=== PATIENT | male | born 1995 | race Caucasian/White ===

== ENCOUNTER 2020-09-13 01:42 | Emergency (ER) ==
--- NOTE | 2020-09-13 19:19 | EKG REPORT ---
SEVERITY:- NORMAL ECG - SINUS RHYTHM : Confirmed by: Kevin Reyes MD 13-Sep-2020 19:17:53
== END 2020-09-13 04:05 | disposition left against medical advice (07) ==
LOC: ER 01:42
DX: Z53.21 Procedure and treatment not carried out due to patient leaving prior to being seen by health care provider (principal); R25.1 Tremor, unspecified
CPT/HCPCS: 93005; 93010

== ENCOUNTER 2020-10-16 22:00 | Emergency (ER) | payer OTHER ==
[2020-10-16 22:53] LABS: ABSOLUTE EOSINOPHILS # (AUTO) 0.5 10^3/uL (0.0-0.6); ABSOLUTE LYMPHOCYTES (AUTO) 2.7 10^3/uL (0.5-4.7); ABSOLUTE MONOCYTES (AUTO) 0.5 10^3/uL (0.1-1.4); ABSOLUTE NEUT (AUTO) 2.6 10^3/uL (1.7-8.2); BASOPHILS % (AUTO) 0.6 % (0-2); EOSINOPHILS % (AUTO) 7.9 % (0-6); HEMATOCRIT 37.8 % (37.9-51.0); MEAN CORPUSCULAR HEMOGLOBIN 30.9 pg (27.0-33.4); MEAN CORPUSCULAR HGB CONC 34.6 g/dL (32.0-36.0); MEAN CORPUSCULAR VOLUME 89 fl (80-97); MONOCYTES % (AUTO) 7.4 % (3-13); PLATELET COUNT 225 10^3/uL (150-450); RED BLOOD COUNT 4.23 10^6/uL (4.35-5.55); RED CELL DISTRIBUTION WIDTH 13.2 % (11.5-14.0); SEGMENTED NEUTROPHILS % (AUTO) 41.1 % (42-78); TOTAL CELLS COUNTED % (AUTO) 100 %; WHITE BLOOD COUNT 6.4 10^3/uL (4.0-10.5)
[2020-10-16 23:00] LABS: ALBUMIN 4.4 g/dL (3.5-5.0); ALCOHOL 282 mg/dL (NONE DETECTED); ALKALINE PHOSPHATASE 48 U/L (38-126); ANION GAP 10 (5-19); ASPARTATE AMINO TRANSFERASE 31 U/L (17-59); BILIRUBIN,TOTAL 0.4 mg/dL (0.2-1.3); BLOOD UREA NITROGEN 13 mg/dL (7-20); CALCIUM 9.1 mg/dL (8.4-10.2); CARBON DIOXIDE 30 mmol/L (22-30); CHLORIDE 105 mmol/L (98-107); GLUCOSE 89 mg/dL (75-110); TOTAL PROTEIN 6.9 g/dL (6.3-8.2)
[2020-10-16 23:01] LABS: APPEARANCE,URINE CLEAR; BILIRUBIN,URINE NEGATIVE (NEGATIVE); COLOR,URINE COLORLESS; GLUCOSE, URINE NEGATIVE (NEGATIVE); KETONES,URINE NEGATIVE (NEGATIVE); LEUKOCYTE ESTERASE,URINE NEGATIVE (NEGATIVE); NITRITE,URINE NEGATIVE (NEGATIVE); PROTEIN,URINE NEGATIVE (NEGATIVE); URINE SPECIFIC GRAVITY 1.003; UROBILINOGEN,URINE NEGATIVE mg/dL (<2.0)
[2020-10-16 23:02] LABS: ACETAMINOPHEN < 10 ug/mL (10-30); SALICYLATE < 1.0 mg/dL (2.0-20.0)
[2020-10-16 23:09] LABS: URINE AMPHETAMINES SCREEN NEGATIVE; URINE BARBITURATES SCREEN NEGATIVE; URINE BENZODIAZEPINES SCREEN NEGATIVE; URINE COCAINE SCREEN NEGATIVE; URINE MARIJUANA (THC) SCREEN NEGATIVE; URINE METHADONE SCREEN NEGATIVE; URINE PHENCYCLIDINE SCREEN NEGATIVE
[2020-10-16] MEDS ORDERED: LORAZEPAM INJ 2 MG/1 ML VIAL IV ONE (23:37)
--- NOTE | 2020-10-16 23:49 | ER Document Report ---
ED General - HPI Associated symptoms: Other - See HPI Exacerbated by: Other - See HPI Relieved by: Other - See HPI <JOSEFINA PAYNE IV - Last Filed: 10/17/20 06:31> <SALAZARESTEFANÍA - Last Filed: 10/17/20 13:58> - General Chief Complaint: Overdose Stated Complaint: ETOH,OVERDOSE Time Seen by Provider: 10/16/20 23:10 - HPI Context: This is a 25-year-old male who presents to the emergency department for evaluation after drinking a unknown amount of alcohol as well as taking several of his lamotrigine pills along some gabapentin pills that were not prescribed to him. The exact time of ingestion is unknown. Patient denies suicidal ideation, saying that he just wanted to feel good. Patient is complaining of problems with insomnia and with anger issues but denies suicidal ideation at this time. Poison control was contacted upon patient's arrival to the ED and a minimum 8-hour observation period was recommended and use of benzos for agitation was recommended in light of the lamotrigine. Patient states he suffers withdrawal symptoms from alcohol. Patient denies having pain at this point. Patient does states he has trouble sleeping and has not slept in several days. Patient denies homicidal ideation. Patient states there are no alleviating factors for his symptoms. Patient states his father about 5 years ago around this time a year and it seems to exacerbate his problems with drinking and insomnia. Patient denies history of COVID-19 infection, known exposure to persons positive for COVID-19 infection or known exposure to persons under investigation for COVID- 19. (JOSEFINA PAYNE IV) - Related Data Allergies/Adverse Reactions: No Known Allergies Allergy (Unverified 10/17/20 04:15) Past Medical History - General Information source: Patient, Emergency Med Personnel - Social History Smoking Status: Former Smoker Frequency of alcohol use: Heavy Drug Abuse: None Family History: Reviewed & Not Pertinent Patient has homicidal ideation: No - Medical History Medical History: Negative Psychiatric Medical History: Reports: Hx Bipolar Disorder <JOSEFINA PAYNE IV - Last Filed: 10/17/20 06:31> Review of Systems <JOSEFINA PAYNE IV - Last Filed: 10/17/20 06:31> - Review of Systems Notes: Review of systems as below unless otherwise stated in HPI. CONSTITUTIONAL [No] fever, [No] chills. EYES [No] eye pain. ENT [No] URI symptoms, [No] sore throat, [No] ear pain. CARDIOVASCULAR [No] chest pain, [No] palpitations, [No] edema. RESPIRATORY [No] Cough, [No] SOB, [No] wheezing. GASTROINTESTINAL [No] abdominal pain, [No] nausea, [No] Diarrhea, [No] Vomiting, [No] constipation, [No] melena, [No] rectal bleeding. GENITOURINARY [No] dysuria, [No] urinary frequency, [No] hematuria, [No] urinary urgency MUSCULOSKELETAL [No] Back pain. SKIN [No] Rash. NEUROLOGIC [No] Headache, [No] recent seizures, [No] paralysis,[No] parathesias. ENDOCRINE [No] polyuria. HEMO/LYMPATIC [No] easy brusing PSYCHIATRIC [No] depression. Positive insomnia, positive anger issues, positive for alcohol abuse (JOSEFINA PAYNE IV) Physical Exam <JOSEFINA PAYNE IV - Last Filed: 10/17/20 06:31> - Vital signs Vitals: Temp 97.1 F 10/16/20 22:06 - Notes Notes: CONSTITUTIONAL [Vital signs reviewed, Patient appears intoxicated, has slurred speech, appears to be in no acute respiratory distress and has a nontoxic appearance] HEAD [Atraumatic, Normocephalic.] EYES [Eyes are normal to inspection, No discharge from eyes, Extraocular muscles intact, Sclera are normal, Conjunctiva are normal.] ENT [External ears normal to inspection, Nose examination normal, Mouth normal to inspection.] NECK [Normal ROM, No jugular venous distention, No meningeal signs, ] RESPIRATORY CHEST [Chest is nontender, Breath sounds normal, No respiratory distress.] CARDIOVASCULAR [Tachycardia, No murmurs, Normal S1 S2, No rub, No gallop.] ABDOMEN [Abdomen is nontender, No pulsatile masses, No other masses, Bowel sounds normal, No distension, No peritoneal signs, No hernias.] BACK [There is no CVA Tenderness, There is no tenderness to palpation, Normal inspection.] UPPER EXTREMITY [Inspection normal, No cyanosis, No clubbing, No edema, LOWER EXTREMITY [Inspection normal, No cyanosis, No clubbing, No edema, No calf tenderness, NEURO [No focal motor deficits, No focal sensory deficits, Speech slurred] SKIN [Skin is warm, Skin is dry, Skin is normal color.] PSYCHIATRIC [Patient appears intoxicated and smells of byproducts of EtOH metabolism] (JOSEFINA PAYNE IV) Course - Laboratory Result Diagrams: 10/16/20 22:12 10/16/20 22:12 <JOSEFINA PAYNE IV - Last Filed: 10/17/20 06:31> - Laboratory Result Diagrams: 10/16/20 22:12 10/16/20 22:12 <ESTEFANÍA SALAZAR - Last Filed: 10/17/20 13:58> - Re-evaluation Re-evalutation: 10/17/20 06:31 pt is medically cleared (JOSEFINA PAYNE IV) - Vital Signs Vital signs: Temp Pulse Resp BP Pulse Ox 98.5 F 17 120/63 99 10/17/20 09:20 10/17/20 06:01 10/17/20 06:01 10/17/20 06:01 - Laboratory Laboratory results interpreted by me: 10/16/20 10/16/20 22:12 22:12 RBC 4.23 L Hgb 13.0 L Hct 37.8 L Eos % (Auto) 7.9 H Seg Neutrophils % 41.1 L Salicylates < 1.0 L Acetaminophen < 10 L - EKG Interpretation by Me Additional EKG results interpreted by me: 10/16/20 23:51 EKG obtained on 10/16/2020 at 2318 hours was interpreted by this MD. Findings: Normal sinus rhythm, rate 98, normal axis, MA interval appears within normal limits, P waves proceed QRS complexes, QRS complexes appear narrow, QTC is four nine, there are no obvious patterns of ST segment elevation, depression or reciprocal changes seen to suggest acute myocardial ischemia or infarction. There is no prior EKG readily available for comparison. Impression: Normal sinus rhythm with nonspecific ST segments. (JOSEFINA PAYNE IV) Discharge <JOSEFINA PAYNE IV - Last Filed: 10/17/20 06:31> <ESTEFANÍA SALAZAR - Last Filed: 10/17/20 13:58> - Discharge Clinical Impression: Substance abuse Overdose Qualifiers: Encounter type: initial encounter Injury intent: accidental or unintentional Qualified Code(s): T50.901A - Poisoning by unspecified drugs, medicaments and biological substances, accidental (unintentional), initial encounter Condition: Stable Disposition: HOME, SELF-CARE Additional Instructions: You have been evaluated both medical and behavioral teams have been deemed appropriate for discharge. You are highly encouraged to follow-up with outpatient substance abuse and mental health services. [facility] can assist with both substance abuse and mental health, you can do a walk-in Monday morning to start services. You have also been provided a local resource list of area providers which includes detox facilities. [facility] can assist with detox if you choose. A referral for the community paramedics will be submitted to assist you in the community while securing outpatient services. DEPRESSION: Your evaluation reveals that you have mental depression. While symptoms may be vague, they often include disturbance of sleep, fatigue, loss of appetite, and general loss of interest in life. While depression may be a side effect of drugs, or a reaction to a major change in your life, many cases have no known cause. If depression is acute, and related to a major loss in your life, you can expect it to clear completely with time. If you have been depressed a long time, are prone to repeated bouts of depression or low mood, or have been thinking of suicide, get help. Depression can be treated with anti-depressant medication and counselling. Long-term depression will often take a few weeks to clear, even with appropriate medication. Follow-up care is important. ACUTE ALCOHOL INTOXICATION and ALCOHOL ABUSE: Your evaluation revealed very high levels of alcohol. You can from drinking a large amount of alcohol rapidly! Further, there's the risk of falls, traffic accidents, and fights. A high portion (about 50 percent) of the serious injuries seen in hospital emergency rooms are caused by alcohol. Alcohol overdosage is usually due to an underlying emotional or psychiatric problem. You may benefit from counselling. If "binge" drinking is an ongoing problem for you, or if you drink ANY AMOUNT of alcohol EVERY day, you most likely have a tendency to alcoholism. You should avoid alcohol totally. We can refer you for treatment. Persons with alcohol problems are often also prone to other addictions -- you should discuss any use of medications or drugs with the doctor. You should be watched at home for the next several hours by someone who has not been drinking. Get extra fluids for the next 24 hours. Call the doctor if there is repeated vomiting, increasing headache, decreasing level of alertness, or any other worsening. CHRONIC ALCOHOLISM and ALCOHOL ABUSE: Your evaluation reveals evidence of chronic alcoholism, an addiction to alcohol. The tendency to alcoholism may be inherited. Chronic use of alcohol weakens muscles, causes fatty deposits in the liver, damages the stomach, makes you more prone to infections, and can cause defects in unborn children. In the long run, brain atrophy and cirrhosis of the liver result. You are also at greater risk for certain types of cancer, such as cancer of the mouth, throat, stomach, and liver. Counselling services are available to help you. In-hospital treatment programs often help. Support groups such as Alcoholics Anonymous can be very useful in beating this addiction. Your physician can make a referral for you. As alcoholics often are prone to other addictions, you should discuss your use of any other medications with the doctor. ALCOHOL WITHDRAWAL: Your symptoms are caused by alcohol withdrawal. After a period of frequent drinking, the brain and body are changed by the alcohol. When you quit or reduce your drinking, the nervous system becomes unstable. Withdrawal symptoms can start a few hours after your last drink, but sometimes don't begin until a couple of days later. Symptoms can include shakiness, sweating, insomnia, nausea, vomiting, fearfulness, hallucinations, and seizures. In addition to the acute effects of alcohol withdrawal, we often have to deal with the medical effects of alcoholism. These problems often include dehydration, stomach irritation, intestinal bleeding, low blood sugar, liver disease, and pancreas inflammation. Treatment for alcohol withdrawal includes mild sedatives, vitamins, and fluids. You need to be with someone who can help if symptoms become severe. Many patients can withdraw at home. Admission to the hospital or a detox facility may be necessary if withdrawal symptoms are severe and uncontrollable. Abstaining from alcohol is the only effective long-term treatment. If you start drinking again, you will not be able to control yourself after the first drink. Treatment programs are available. In addition, many alcoholics benefit from Alcoholics Anonymous or other support groups available through your counselor or yazdanism room service waiter. [facility] and [facility] are support groups for friends and family members of an alcoholic. Go to the emergency room if you develop persistent vomiting, severe a bdominal pain, fever, shortness of breath, hallucinations, uncontrollable tremors, or seizures. FOLLOW-UP CARE: If you have been referred to a physician for follow-up care, call the physicians office for an appointment as you were instructed or within the next two days. If you experience worsening or a significant change in your symptoms, notify the physician immediately or return to the Emergency Department at any time for re-evaluation. Referrals: [facility] [Outside] - Follow up in 3-5 days [facility] [Outside] - Follow up as needed
[2020-10-17] MEDS ORDERED: LORAZEPAM INJ 2 MG/1 ML VIAL IV ONE ×2 (02:16→06:29)
--- NOTE | 2020-10-17 11:50 | EKG REPORT ---
SEVERITY:- NORMAL ECG - SINUS RHYTHM : Confirmed by: Bry Morgan MD 17-Oct-2020 11:49:57
--- NOTE | 2020-10-17 13:55 | PSYCHOLOGICAL NOTE ---
Psych Note - Psych Note Date seen by psych provider: 10/17/20 Time seen by psych provider: 11:20 Psych Note: Reason for Consult:Overdose Consent Permissions: Patient's girlfriend at bedside for developing plan of care per patient's request Patient arrived to [facility] ED via EMS for concerns of overdose on Lamictal. Patient reportedly took Lamictal and gabapentin while drinking alcohol in an attempt to get high. Patient confirms difficulties during the holidays due to grief i.e. patient's sister and father have both within the last 5 years. Patient adamantly denies he was attempting to harm himself stating he was just trying to get high so he could "escape" for a little bit. Patient discloses he is unsure why he even thought that Lamictal would get him high but contributes his drinking to not being able to think clearly on what he was taking. Patient's girlfriend confirms patient's report that last night was the patient attempting to escape reality not attempting to kill himself. She confirms she will ensure the patient does not have access to medications and weapons especially while under the influence due to his impulsiveness. Both patient and patient's girlfriend confirm they will discuss possible detox facilities and follow-up treatment. Patient reports he would like to start up with AA again as this is helped him in the past. Clinician will provide the patient with online resources due to Covid shutting down most in person AA meetings. Patient is alert and orientated to person, place, time and circumstance. Mood is euthymic with congruent affect as evidenced by smiling laughing engaging with clinician. Patient adamantly denies suicidal ideation however admits to be attempting to use Lamictal and gabapentin to get high. Patient denies homicidal ideation. Delusions are absent and behaviors congruent with an intact reality based presentation i.e. organized linear thought process. Eye contact is well maintained. Patient has notable speech impediment that he reports is currently at baseline. Intellectual abilities appear to be within the average range. Attention and concentration are good. Insight, judgment, impulse control are poor due to substance abuse. Clinical Presentation: Substance abuse Depression due to ongoing grief IVC Criteria per [place] GS 122C Dangerous to others Within the relevant past the individual No has inflicted or attempted to inflict or threatened to inflict serious bodily harm on another AND No that there is a reasonable probability that this conduct will be repeated as there is an absence of supervision or structure to prevent. OR No has acted in such a way as to create a substantial risk of serious bodily harm to another AND No that there is a reasonable probability that this conduct will be repeated as there is an absence of supervision or structure to prevent. OR No has engaged in extreme destruction of property AND NO that there is a reasonable probability that this conduct will be repeated as there is an absence of supervision or structure to prevent. Previous episodes of dangerousness to others, when applicable, may be considered when determining reasonable probability of future dangerous conduct. Clear, cogent, and convincing evidence that an individual has committed a homicide in the relevant past is prima facie evidence of dangerousness to others. Dangerous to self Within the relevant past the individual has done any of the following: acted in such a way as to show ALL of the following: No The individual would be unable without care, supervision, and the continued assistance of others not otherwise available, to exercise self- control, judgment, and discretion in the conduct of the individual's daily responsibilities and social relations or to satisfy the individual's need for nourishment, personal or medical care, mcfp, or self-protection and safety. AND No There is a reasonable probability of the individual suffering serious physical debilitation within the near future unless adequate treatment is given. A showing of behavior that is grossly irrational, of actions that the individual is unable to control, of behavior that is grossly inappropriate to the situation, or of other evidence of severely impaired insight and judgment shall create a prima facie inference that the individual is unable to care for himself or herself. OR No has attempted suicide or threatened suicide AND No that there is a reasonable probability of suicide unless adequate treatment is given as there is an absence of supervision or structure to prevent suicide of patient who has made an attempt, serious gesture or threat. Patient arrived after overdose on lamictal while drinking. Patient denies this was a suicide attempt, he was attempting to get high. Patient does admit to depression during the holidays which her reports why he was trying to get high, to escape. Patient is an alcoholic and reports the alcohol was making him not think clearly, he is unsure why he even thought he could get high on lamictal. OR No has mutilated himself or herself or attempted to mutilate himself or herself AND No that there is a reasonable probability of serious self-mutilation unless adequate treatment is given as there is an absence of supervision or structure to prevent. NOTE: Previous episodes of dangerousness to self, when applicable, may be considered when determining reasonable probability of physical debilitation, suicide, or self-mutilation. Impression\\plan: Patient is recommended for rescind of IVC and is cleared from acute psychiatric services; paperwork is signed and placed in patient's chart. Patient denies any thoughts of wanting to harm himself or others. Patient reports he was attempting to get high and in order to escape his depression last night. Patient's girlfriend is at bedside and confirms patient's reports. Neither patient nor girlfriend have concerns with the patient returning home. Patient's girlfriend does confirm she will ensure the patient does not have access to medications or weapons especially due to his longstanding alcohol abuse and impulse control issues while intoxicated. Patient is recommended to follow-up with both substance abuse and mental health services to address ongoing alcohol abuse and depression surrounding grief. Patient is recommended to follow-up with [facility] and can walk-in Monday. Patient is also provided local resource list of area providers including detox facilities and mobile crisis contact information. Patient is encouraged to contact [facility] for assistance with voluntary detox. A referral for community paramedics will also be submitted for continued follow-up in the community while establishing services. Dr. Perera was consulted to care management of this patient; attending physicians in agreement with recommendations and disposition.
--- NOTE | 2020-10-17 14:39 | ER Document Report ---
Doctor's Note Notes: 10/17/20 14:38 Patient's vital signs and previous labs, diagnostic images reviewed. Reviewed mental health notes, nurse's notes and previous providers notes. VSS. Pt is in no distress at this time. Denies any SI or HI. General: A&Ox3. Answers questions appropriately. Heart: RRR Lungs: CTAB Psych: Flat affect A/P: Continue monitoring and rec's per MH. Normal diet will likely discharge home with outpatient therapy
[2020-10-17 15:50] VITALS: BP 133/81
== END 2020-10-17 15:36 | disposition home or self-care (01) ==
LOC: ER 22:00
DX: T42.6X1A Poisoning by other antiepileptic and sedative-hypnotic drugs, accidental (unintentional), initial encounter (principal); F10.10 Alcohol abuse, uncomplicated; G47.00 Insomnia, unspecified; F43.21 Adjustment disorder with depressed mood; R45.4 Irritability and anger; Z63.4 Disappearance and death of family member; Z87.891 Personal history of nicotine dependence
CPT/HCPCS: 93005; 96376; 99284; 96374; 36415; 80307 ×4; 85025; 80053; 81001; 93010; J2060 ×2

== ENCOUNTER 2020-12-07 17:00 | Emergency (ER) | payer OTHER ==
--- NOTE | 2020-12-07 17:34 | ER Document Report ---
ED General - General Chief Complaint: Alcohol Withdrawl Stated Complaint: ALCOHOL WITHDRAWAL Time Seen by Provider: 12/07/20 17:31 - HPI Notes: 25-year-old male presents with concerns for alcohol withdrawal. Patient states that he typically drinks 1 bottle of vodka daily. He has been through many cycles of trying to quit alcohol use and alcohol withdrawal. Patient states that last night he was experiencing withdrawal symptoms. He reports that he was hallucinating and feeling shaky. He states that he heard a baby crying, birds in the house, a door slamming. He also states that he thought he saw ants crawling around him. He has never had a seizure from alcohol withdrawal. He states that drinking alcohol helps with his symptoms. Will wake up in the mornings and feel flushed and anxious, does consume a morning drink. he did consume about 4 beers today which alleviated his previous symptoms. He currently complains of nausea and wanting to get better. He denies other drugs of abuse. He has not contacted any treatment facilities but is open to the possibility of going today. Also states that he will frequently make himself throw up while he is intoxicated. - Related Data Allergies/Adverse Reactions: No Known Allergies Allergy (Unverified 10/17/20 04:15) Past Medical History - General Information source: Patient - Social History Smoking Status: Current Every Day Smoker Frequency of alcohol use: Heavy Drug Abuse: None Family History: Reviewed & Not Pertinent Psychiatric Medical History: Reports: Hx Bipolar Disorder Review of Systems - Review of Systems Constitutional: No symptoms reported EENT: No symptoms reported Cardiovascular: denies: Chest pain Respiratory: denies: Short of breath Gastrointestinal: denies: Abdominal pain Male Genitourinary: No symptoms reported Musculoskeletal: No symptoms reported Skin: No symptoms reported Hematologic/Lymphatic: No symptoms reported Neurological/Psychological: denies: Headaches Physical Exam - Vital signs Vitals: Temp Pulse Resp BP Pulse Ox 98.1 F 91 16 125/75 97 12/07/20 17:24 12/07/20 17:24 12/07/20 17:24 12/07/20 17:24 12/07/20 17:24 - General General appearance: Appears well, Alert In distress: None - HEENT Head: Normocephalic, Atraumatic Extraocular movements intact: Yes Pupils: PERRL Notes: No facial flushing - Respiratory Breath sounds: Normal - Cardiovascular Rhythm: Regular Heart sounds: Normal auscultation - Abdominal Distension: No distension Tenderness: Nontender - Extremities General upper extremity: Normal ROM General lower extremity: Normal ROM - Neurological Neuro grossly intact: Yes Cognition: Normal Orientation: AAOx4 - Psychological Associated symptoms: Other - Mood and affect congruent to situation - Skin Skin Temperature: Warm Notes: No diaphoresis Course - Re-evaluation Re-evalutation: 25-year-old male history of alcohol abuse/dependence here with withdrawal symptoms last night, abated this morning with alcohol consumption. On exam he is well-appearing, no tachycardia, no hypertension, no facial flushing or diaphoresis. Lungs are clear, abdomen is soft. Does not appear to be actively in withdrawal. Given his alcohol consumption today I would have a low suspicion for this additionally. I discussed with patient the end goal today, he is agreeable to go to [place] to seek treatment for alcohol abuse. Will order clearance labs and Zofran. 12/07/20 18:55 No leukocytosis or left shift. No acute anemia. Electrolytes okay. No elevation of LFTs. No UTI. EtOH 220. I went into reassess patient. He reports of being shaky, however there are no visible tremors. Again no facial flushing or diaphoresis. I do not suspect he is in acute alcohol withdrawal right now, additionally his ethanol level is protective, have ordered a small dose of oral Valium as favoring more so anxiety. I gave him of the resource list for detox facilities. His girlfriend is at bedside and they do intend to go to [place] after discharge. Return precautions given, stable at time of discharge. - Vital Signs Vital signs: Temp Pulse Resp BP Pulse Ox 98.1 F 91 16 125/75 97 12/07/20 17:24 12/07/20 17:24 12/07/20 17:24 12/07/20 17:24 12/07/20 17:24 - Laboratory Results Result Diagrams: 12/07/20 17:52 12/07/20 17:52 Laboratory Results Interpreted: 12/07/20 17:52 Sodium 145.3 H Chloride 108 H Critical Laboratory Results Reviewed: No Critical Results - Radiology Results Critical Radiology Results Reviewed: No Critical Results Discharge - Discharge Clinical Impression: Alcohol abuse with intoxication Disposition: HOME, SELF-CARE Additional Instructions: Please go to [place] treatment center to receive treatment for alcohol abuse. If unable to get the [facility], you may look into other rehab facilities in the area, see resource list provided. Return to the emergency department for any concerning worsening symptoms.
[2020-12-07] MEDS ORDERED: ONDANSETRON 4 MG TAB.RAPDIS PO ONE (17:42)
[2020-12-07 18:24] LABS: ABSOLUTE EOSINOPHILS # (AUTO) 0.3 10^3/uL (0.0-0.6); ABSOLUTE LYMPHOCYTES (AUTO) 2.2 10^3/uL (0.5-4.7); ABSOLUTE MONOCYTES (AUTO) 0.6 10^3/uL (0.1-1.4); ABSOLUTE NEUT (AUTO) 3.6 10^3/uL (1.7-8.2); BASOPHILS % (AUTO) 0.6 % (0-2); EOSINOPHILS % (AUTO) 5.1 % (0-6); HEMATOCRIT 40.3 % (37.9-51.0); LYMPHOCYTES % (AUTO) 32.7 % (13-45); MEAN CORPUSCULAR HEMOGLOBIN 30.4 pg (27.0-33.4); MEAN CORPUSCULAR HGB CONC 34.7 g/dL (32.0-36.0); MEAN CORPUSCULAR VOLUME 88 fl (80-97); MONOCYTES % (AUTO) 8.3 % (3-13); PLATELET COUNT 178 10^3/uL (150-450); RED BLOOD COUNT 4.61 10^6/uL (4.35-5.55); SEGMENTED NEUTROPHILS % (AUTO) 53.3 % (42-78); TOTAL CELLS COUNTED % (AUTO) 100 %; WHITE BLOOD COUNT 6.7 10^3/uL (4.0-10.5)
[2020-12-07 18:35] LABS: APPEARANCE,URINE CLEAR; BILIRUBIN,URINE NEGATIVE (NEGATIVE); COLOR,URINE COLORLESS; GLUCOSE, URINE NEGATIVE (NEGATIVE); KETONES,URINE NEGATIVE (NEGATIVE); LEUKOCYTE ESTERASE,URINE NEGATIVE (NEGATIVE); NITRITE,URINE NEGATIVE (NEGATIVE); PROTEIN,URINE NEGATIVE (NEGATIVE); URINE SPECIFIC GRAVITY 1.005; UROBILINOGEN,URINE NEGATIVE mg/dL (<2.0)
[2020-12-07 18:42] LABS: ALBUMIN 4.6 g/dL (3.5-5.0); ALCOHOL 220 mg/dL (NONE DETECTED); ALKALINE PHOSPHATASE 52 U/L (38-126); ANION GAP 9 (5-19); ASPARTATE AMINO TRANSFERASE 34 U/L (17-59); BILIRUBIN,DIRECT 0.1 mg/dL (0.0-0.4); BILIRUBIN,TOTAL 0.9 mg/dL (0.2-1.3); BLOOD UREA NITROGEN 9 mg/dL (7-20); CALCIUM 9.6 mg/dL (8.4-10.2); CARBON DIOXIDE 28 mmol/L (22-30); CHLORIDE 108 mmol/L (98-107); GLUCOSE 98 mg/dL (75-110); POTASSIUM 3.9 mmol/L (3.6-5.0); TOTAL PROTEIN 7.4 g/dL (6.3-8.2)
[2020-12-07] MEDS ORDERED: DIAZEPAM 2 MG TABLET PO ONE (18:52)
[2020-12-07 18:58] LABS: URINE AMPHETAMINES SCREEN NEGATIVE; URINE BARBITURATES SCREEN NEGATIVE; URINE BENZODIAZEPINES SCREEN NEGATIVE; URINE COCAINE SCREEN NEGATIVE; URINE MARIJUANA (THC) SCREEN NEGATIVE; URINE METHADONE SCREEN NEGATIVE; URINE PHENCYCLIDINE SCREEN NEGATIVE
[2020-12-07 19:04] VITALS: BP 124/73
== END 2020-12-07 19:07 | disposition home or self-care (01) ==
LOC: ER 17:00
DX: F10.129 Alcohol abuse with intoxication, unspecified (principal); F17.200 Nicotine dependence, unspecified, uncomplicated
CPT/HCPCS: 99283; 36415; 80307 ×2; 85025; 80053; 81001; J3490; S0119